=== PATIENT | female | born 1980 | race American Indian/Alaskan Native ===

== ENCOUNTER 2017-07-03 18:56 | Emergency (ER) | payer SELFPAY ==
[2017-07-03 21:00] LABS: HCG Qualitative,Urine Negative (Negative)
[2017-07-03] MEDS ORDERED: MOTRIN PO ONE (23:15)
[2017-07-03] MEDS ORDERED: DELTASONE PO ONE (23:15)
[2017-07-03] MEDS ORDERED: AUGMENTIN 875 MG PO ONE (23:15)
--- NOTE | 2017-07-03 23:15 | Emergency Department Report ---
Minor Respiratory - HPI Chief Complaint: Upper Respiratory Infection Stated Complaint: BODY ACHE,CONGESTION,HEADACHE Time Seen by Provider: 07/03/17 22:46 Duration: over 1 week. Pain Location: Other (generalized body ache) Severity: severe (09/22) Minor Respiratory: Yes Rhinorrhea (nasal congestion), Yes Able to Tolerate Fluids, Yes Cough (dry cough), No Sore Throat, No Ear Pain (ear congestion), No Sick Contacts, No Hemoptysis, No Chest Pain, No Shortness of Breath, No Fever Other History: Patient reports that she is having in cough, sneezing, runny nose and body aches that started ongoing for over 1 week and she's been taking i sinus medication and is not helping. She says she has problems with her sinuses. She reports nasal congestion and facial pain and pressure. Denies any headache. Generalized aching in 7-10. Denies any fever or chills. Denies any abdominal or back pain. Denies any chest pain or difficulty breathing. Cough is dry. Nothing makes pain better and nothing makes it worse. ED Review of Systems ROS: Stated complaint: BODY ACHE,CONGESTION,HEADACHE Other details as noted in HPI Comment: All other systems reviewed and negative Constitutional: no symptoms reported ENT: congestion. denies: ear pain, throat pain Respiratory: cough. denies: shortness of breath, SOB with exertion, SOB at rest , stridor, wheezing Cardiovascular: denies: chest pain, palpitations, dyspnea on exertion, edema, syncope, paroxysmal nocturnal dyspnea Gastrointestinal: denies: abdominal pain, nausea, vomiting, diarrhea, constipation Genitourinary: denies: dysuria, hematuria Musculoskeletal: myalgia. denies: back pain, joint swelling, arthralgia Skin: denies: rash Neurological: denies: headache, numbness, paresthesias, abnormal gait, vertigo ED Past Medical Hx - Past Medical History Previous Medical History?: No - Surgical History Past Surgical History?: Yes Hx Appendectomy: Yes - Family History Family history: no significant - Social History Smoking Status: Never Smoker Substance Use Type: None - Medications Home Medications: Home Medications Medication Instructions Recorded Confirmed Last Taken Type Amoxicillin/K Clav Tab [Augmentin 1 tab PO Q12HR 10 Days #20 tab 07/04/17 Unknown Rx 875 mg] Cetirizine HCl [ZyrTEC] 10 mg PO QAM 14 Days #14 capsule 07/04/17 Unknown Rx Fluticasone [Flonase] 1 spray NS QDAY 14 Days #1 bottle 07/04/17 Unknown Rx Ibuprofen [Motrin] 600 mg PO Q8H PRN #15 tablet 07/04/17 Unknown Rx Minor Respiratory Exam - Exam General: Vital signs noted. No distress. Alert and acting appropriately. This is a 36-year-old female well-nourished well-developed in no acute distress. HEENT: Yes Moist Mucous Membranes (uvula is midline and oral airways patent), Yes Rhinorrhea (nasal congestion and erythema), Yes Frontal Tenderness, Yes Maxillary Tenderness, No Pharyngeal Erythema, No Pharyngeal Exudates, No Conjuctival Injection Ear: Neither TM Bulge (Bilateral TM congested), Neither TM Erythema, Neither EAC Pain, Neither EAC Discharge Neck: Yes Supple (for range of motion and no C-spine tenderness), No Adenopathy Lungs: Yes Good Air Exchange (clear to auscultate bilaterally), Yes Cough (dry cough), No Wheezes, No Ronchi, No Stridor, No Labored Respirations, No Retractions, No Use of Accessory Muscles, No Other Abnormal Lung Sounds Heart: Yes Regular (S1 and S2), No Murmur Abdomen: Yes Normal Bowel Sounds (in all quadrants), No Tenderness (tender to palpate in all quadrants), No Peritoneal Signs Skin: No Rash, No Edema Neurologic: Alert and oriented 3. Normal gait Musculoskeletal: Unremarkable. Extremity: No clubbing, cyanosis or edema. +2 pulses in all extremities ED Course Vital Signs 07/03/17 07/03/17 19:30 22:10 Temperature 98.7 F 99.3 F Pulse Rate 87 93 H Respiratory 20 16 Rate Blood Pressure 139/75 Blood Pressure 128/75 [Left] O2 Sat by Pulse 98 100 Oximetry - Reevaluation(s) Reevaluation #1: 07/04/17 00:12 Patient given the results of the milligrams by mouth and Augmentin 875 mg by mouth in emergency room. She was also given and Motrin is given Motrin 800 mg by mouth for generalized pain which she said helps ED Medical Decision Making - Lab Data Lab Results 07/03/17 Range/Units 20:41 Urine HCG, Qual Negative (Negative) - Medical Decision Making ED course: Patient is here with symptoms this upper respiratory infection and found to have sinus infection. I discussed the patient her diagnosis and treatment plan and she voiced understanding. Patient given Deltasone 60 mg by mouth, started on Augmentin just 75 mg by mouth and Motrin 800 mg by mouth. Patient discharged home in stable condition with prescription for Augmentin, Zyrtec, Flonase and Motrin and to follow up with her primary care physician in 3 -5 days Critical care attestation.: If time is entered above; I have spent that time in minutes in the direct care of this critically ill patient, excluding procedure time. ED Disposition Clinical Impression: Acute bacterial rhinosinusitis, Musculoskeletal pain, Cough in adult Disposition: DC-01 TO HOME OR SELFCARE Is pt being admited?: No Does the pt Need Aspirin: No Condition: Stable Instructions: Acute Cough (ED), Acute Bacterial Rhinosinusitis (ED), Musculoskeletal Pain (ED) Additional Instructions: Please increase her fluid intake Flush nostrils with saline nasal spray take antibiotic as prescribed F/U with primary care physician as instructed Take Zyrtec and Flonase for nasal and ear congestion Prescriptions: Amoxicillin/K Clav Tab [Augmentin 875 mg] 1 tab PO Q12HR 10 Days #20 tab Cetirizine HCl [ZyrTEC] 10 mg PO QAM 14 Days #14 capsule Fluticasone [Flonase] 1 spray NS QDAY 14 Days #1 bottle Ibuprofen [Motrin] 600 mg PO Q8H PRN #15 tablet PRN Reason: Pain Referrals: PRIMARY CARE, [Primary Care Provider] - 3-5 Days Forms: Work/School Release Form(ED)
[2017-07-04 02:18] VITALS: BP 136/72
== END 2017-07-04 00:23 | disposition home or self-care (01) ==
LOC: ED 18:56
DX: J01.90 Acute sinusitis, unspecified (principal); B96.89 Other specified bacterial agents as the cause of diseases classified elsewhere
CPT/HCPCS: 81025; 99283; J7512

== ENCOUNTER 2017-08-12 14:28 | Emergency (ER) | payer OTHER ==
[2017-08-12 14:46] VITALS: BP 123/79
[2017-08-12 16:38] LABS: HCG Qualitative,Urine Negative (Negative)
[2017-08-12] MEDS ORDERED: NORCO 5/325 PO ONE (19:13)
--- NOTE | 2017-08-12 19:13 | Emergency Department Report ---
ED Lower Extremity HPI - General Chief Complaint: Extremity Injury, Lower Stated Complaint: KNEE PAIN Time Seen by Provider: 08/12/17 19:07 Source: patient Mode of arrival: Ambulatory Limitations: No Limitations - History of Present Illness Initial Comments: 36-year-old female past medical history obesity presents bilateral knee pain status post mechanical jump. Patient states that a week ago she jumped while doing a taoism-related activity and felt pain in both of her knees slightly worse than left and right. Denies any other injuries. Patient is ambulating but states that both of her knees ache. took motrin at home with minimal Denies nausea vomiting fever or chills. Slight swelling of both knees as per patient Pt she states she felt slight popping sensation in both of her knees after jump Complaint: knee injury Onset/Timin -: days(s) Injury: Knee: Right, Left Type of Injury: other (patient jumped) Place: other (taoism) Severity scale (0 -10): 6 Improves With: cold therapy, immobilization Worsens With: weight bearing, movement, palpation Context: jumping Associated Symptoms: snap/pop sensation, able to partially bear weight, ambulatory - Related Data Previous Rx's Medication Instructions Recorded Last Taken Type Amoxicillin/K Clav Tab [Augmentin 1 tab PO Q12HR 10 Days #20 tab 07/04/17 Unknown Rx 875 mg] Cetirizine HCl [ZyrTEC] 10 mg PO QAM 14 Days #14 capsule 07/04/17 Unknown Rx Fluticasone [Flonase] 1 spray NS QDAY 14 Days #1 bottle 07/04/17 Unknown Rx Ibuprofen [Motrin] 600 mg PO Q8H PRN #15 tablet 07/04/17 Unknown Rx Acetaminophen/Codeine [Tylenol 1 tab PO Q6H PRN #10 tab 08/12/17 Unknown Rx /Codeine # 3 tab] Ibuprofen [Motrin] 800 mg PO Q8HR PRN #20 tablet 08/12/17 Unknown Rx Allergies Allergy/AdvReac Type Severity Reaction Status Date / Time No Known Allergies Allergy Unverified 07/03/17 19:34 ED Review of Systems ROS: Stated complaint: KNEE PAIN Other details as noted in HPI ED Past Medical Hx - Past Medical History Previous Medical History?: No Additional medical history: Anemia - Surgical History Hx Appendectomy: Yes - Social History Smoking Status: Never Smoker Substance Use Type: Alcohol - Medications Home Medications: Home Medications Medication Instructions Recorded Confirmed Last Taken Type Amoxicillin/K Clav Tab [Augmentin 1 tab PO Q12HR 10 Days #20 tab 07/04/17 Unknown Rx 875 mg] Cetirizine HCl [ZyrTEC] 10 mg PO QAM 14 Days #14 capsule 07/04/17 Unknown Rx Fluticasone [Flonase] 1 spray NS QDAY 14 Days #1 bottle 07/04/17 Unknown Rx Ibuprofen [Motrin] 600 mg PO Q8H PRN #15 tablet 07/04/17 Unknown Rx Acetaminophen/Codeine [Tylenol 1 tab PO Q6H PRN #10 tab 08/12/17 Unknown Rx /Codeine # 3 tab] Ibuprofen [Motrin] 800 mg PO Q8HR PRN #20 tablet 08/12/17 Unknown Rx ED Physical Exam - General Limitations: No Limitations General appearance: alert, in no apparent distress - Head Head exam: Present: atraumatic, normocephalic - Eye Eye exam: Present: normal appearance, PERRL, EOMI - ENT ENT exam: Present: mucous membranes moist - Neck Neck exam: Present: normal inspection - Respiratory Respiratory exam: Present: normal lung sounds bilaterally. Absent: respiratory distress - Cardiovascular Cardiovascular Exam: Present: regular rate, normal rhythm. Absent: systolic murmur, diastolic murmur, rubs, gallop - GI/Abdominal GI/Abdominal exam: Present: soft, normal bowel sounds - Extremities Exam Extremities exam: Present: normal inspection, full ROM (range of motion bilateral knees clinically intact extension and flexion) - Back Exam Back exam: Present: normal inspection - Neurological Exam Neurological exam: Present: alert, oriented X3 - Psychiatric Psychiatric exam: Present: normal affect, normal mood - Skin Skin exam: Present: warm, dry, intact, normal color. Absent: rash ED Course Vital Signs 08/12/17 14:39 Temperature 98.5 F Pulse Rate 72 Respiratory 18 Rate Blood Pressure 123/79 O2 Sat by Pulse 99 Oximetry ED Lower Extremity MDM - Medical Decision Making A/P: bilateral knee sprain 1-Motrin when necessary, short course tylenol 3 prn. 2-Yassine wraps to both knees bilaterally, RICE therapy 3-follow-up with orthopedics 4-reviewed both knee x-rays no apparent fractures on x-ray Critical care attestation.: If time is entered above; I have spent that time in minutes in the direct care of this critically ill patient, excluding procedure time. ED Disposition Clinical Impression: Bilateral knee pain Qualifiers: Chronicity: unspecified Qualified Code(s): M25.561 - Pain in right knee; M25.562 - Pain in left knee Disposition: TO HOME OR SELFCARE Is pt being admited?: No Does the pt Need Aspirin: No Condition: Stable Instructions: Knee Sprain (ED), RICE Therapy (ED) Prescriptions: Acetaminophen/Codeine [Tylenol /Codeine # 3 tab] 1 tab PO Q6H PRN #10 tab PRN Reason: Pain Ibuprofen [Motrin] 800 mg PO Q8HR PRN #20 tablet PRN Reason: Pain Referrals: [facility] [Provider Group] - 3-5 Days [facility] [Outside] - 3-5 Days Forms: Work/School Release Form(ED) Time of Disposition: 20:13
--- NOTE | 2017-08-17 14:14 | XRay Report ---
FINAL REPORT PROCEDURE: Three view bilateral knee series TECHNIQUE: AP lateral oblique views of the right and left knee were obtained. HISTORY: b/l knee pain COMPARISON: No prior studies are available for comparison. FINDINGS: Bipartite patella present bilaterally, normal variant. No acute fracture or dislocation is identified. There is however a moderate size right knee effusion. Small left knee effusion also present. Bone density appears normal. Other than bipartite patella the joint spaces appear well preserved. IMPRESSION: Bilateral knee effusions present, the right side is moderate the left side is small. Bipartite patella also present. No acute fractures are identified.
== END 2017-08-12 21:50 | disposition home or self-care (01) ==
LOC: ED 14:28
DX: M25.562 Pain in left knee (principal); M25.561 Pain in right knee
CPT/HCPCS: 81025; 99284